=== PATIENT | female | born 1950 | race Caucasian/White ===

== ENCOUNTER 2016-12-15 07:23 | Day surgery (SDC) | payer BC ==
[2016-12-15] MEDS ORDERED: LIDOCAINE 2% MDV (20MG/ML) 20ML VIAL IV ONE (16:08)
[2016-12-15] MEDS ORDERED: PROPOFOL 10 MG/ML VIAL IV ONE (16:08)
--- NOTE | 2016-12-21 10:20 | Operative Note ---
DATE OF SERVICE: 12/15/2016. REFERRING PHYSICIAN: Eduarda Osborne MD. PREOPERATIVE DIAGNOSIS: History of polyps. POSTOPERATIVE DIAGNOSES: 1. Ascending colon polyps x 2. 2. Sigmoid colon polyps x 2. 3. Moderate to severe sigmoid diverticulosis. 4. Fair quality preparation. OPERATION: Colonoscopy with cold snare and cold forceps polypectomy. ESTIMATED BLOOD LOSS: Minimum. SPECIMENS: Ascending colon polyps, sigmoid polyps. COMPLICATIONS: None apparent. PROCEDURE: After informed consent was obtained from the patient, she was placed in left lateral decubitus position in the endoscopy suite, sedated and monitored by Department of Anesthesia. Digital rectal examination was unremarkable. A well lubricated [id number] colonoscope was inserted in the rectum and advanced to the cecum. Preparation quality was fair at best. The cecum, ileocecal valve, and appendiceal orifice are unremarkable. The ascending colon revealed 2 sessile polyps approximately 4 mm diameter, and each removed with a cold snare. Minimal bleeding was noted. Remainder of the ascending colon, transverse colon, and descending colon were unremarkable. The sigmoid colon demonstrated moderate to severe diverticular changes. There were 2 diminutive polyps, each removed with a cold forceps. The rectum was unremarkable in forward and in J-turn views. The endoscope was straightened, the rectal ampulla deflated, and the endoscope was removed. RECOMMENDATIONS: Patient should follow a high-fiber diet. Based on the preparation quality and the findings, I would recommend a repeat exam in 3 years. As always, thank you for allowing me to participate in the care of your patient. CC: EDUARDA OSBORNE MD, FACP DO JAMES Mejia
== END 2016-12-15 10:06 | disposition home or self-care (01) ==
LOC: HOP 07:23
PROVIDERS: ATTEND Internal Medicine Gastroenterology
DX: Z86.010 Personal history of colon polyps (principal); D12.5 Benign neoplasm of sigmoid colon; K57.30 Diverticulosis of large intestine without perforation or abscess without bleeding; I10 Essential (primary) hypertension; E11.9 Type 2 diabetes mellitus without complications; Z79.4 Long term (current) use of insulin; Z79.84 Long term (current) use of oral hypoglycemic drugs; J45.909 Unspecified asthma, uncomplicated

== ENCOUNTER 2017-04-06 12:05 | Day surgery (SDC) | payer BC ==
[2017-04-06] MEDS ORDERED: LIDOCAINE 2% MDV (20MG/ML) 20ML VIAL IV ONE (12:06)
[2017-04-06] MEDS ORDERED: PROPOFOL 10 MG/ML VIAL IV ONE (12:06)
--- NOTE | 2017-04-07 12:31 | Operative Note ---
DATE OF SURGERY: 04/06/2017 OPERATION: ESOPHAGOGASTRODUODENOSCOPY with biopsy and Dominguez dilation. PREOPERATIVE DIAGNOSIS: Heartburn, dysphagia, and chest pain. POSTOPERATIVE DIAGNOSIS: Minimally irregular Z line with a suspected columnar island and otherwise normal upper endoscopy. PROCEDURE: After informed consent was obtained from the patient, she was placed in the left lateral decubitus position in the endoscopy suite, sedated and monitored by the department of anesthesia. Once sedated, a well-lubricated [id number] gastroscope was placed in the posterior oropharynx and under direct visualization passed to the proximal esophagus. The endoscope was advanced through the proximal, mid, and distal esophagus. The GE junction demonstrated a columnar island and otherwise was unremarkable. The remainder of the esophagus appeared normal. The gastric body, antrum, pylorus, duodenal bulb and sweep were otherwise unrevealing. J-turn views of the proximal stomach revealed no obvious mass. No inflammation or ulcers were seen throughout the stomach or upper duodenum. The endoscope was straightened. The GE junction was biopsied. The endoscope was removed from the patient with no new findings noted. At this point, a 52-[place] Dominguez dilator was passed with mild resistance to the level of the GE junction and removed. The endoscope was reinserted and no tears were noted. RECOMMENDATIONS: The patient should resume her medications and diet. If her symptoms persist, perhaps an esophagram with barium tablet would be helpful. At this point, no obvious significant findings were noted to explain her symptoms. This may be very functional in origin. As always, thank you for allowing me to participate in the healthcare of your patients. CC: EDUARDA QUISPE MD, FACP [facility]
== END 2017-04-06 14:30 | disposition home or self-care (01) ==
LOC: HOP 12:05
PROVIDERS: ATTEND Internal Medicine Gastroenterology
DX: R13.14 Dysphagia, pharyngoesophageal phase (principal); K31.89 Other diseases of stomach and duodenum; I10 Essential (primary) hypertension; E11.8 Type 2 diabetes mellitus with unspecified complications; Z79.84 Long term (current) use of oral hypoglycemic drugs